=== PATIENT | male | born 1955 | race Caucasian/White ===

== ENCOUNTER 2022-08-17 02:30 | Emergency (ER) | payer MEDICARE, SELFPAY ==
--- NOTE | 2022-08-17 | ECG_ITS ---
Test Reason : FALL Blood Pressure : / mmHG Vent. Rate : 072 BPM Atrial Rate : 072 BPM P-R Int : 176 ms QRS Dur : 080 ms QT Int : 388 ms P-R-T Axes : 048 -18 037 degrees QTc Int : 424 ms Normal sinus rhythm Inferior infarct , age undetermined Anteroseptal infarct , age undetermined Abnormal ECG No previous ECGs available Referred By: Generic ED Physician Electronically Signed By:LEXIS LEVI MD
--- NOTE | ~2022-08-17 | CT_ITS ---
EXAMINATION: NONCONTRAST HEAD CT NONCONTRAST CERVICAL SPINE CT INDICATION INFORMATION: Fall. COMPARISON: CT neck dated 12/07/2021 TECHNIQUE: Separate noncontrast CT examinations of the head and cervical spine were performed. Coronal and sagittal images were created for each examination at the technologist workstation. This CT examination was performed using dose optimization techniques as appropriate, variously including the following: *Automated exposure control *Adjustment of mA and/or kV according to patient size (this includes techniques or standardized protocols for targeted exams where dose is matched to indication/reason for exam; i.e. extremities or head) *Use of iterative reconstruction technique DLP: 1564 mGy-cm FINDINGS: Head: There is no evidence of acute intracranial hemorrhage or territorial infarction. No abnormal mass effect or midline shift is seen. Vila to white matter differentiation is well preserved. No extra-axial fluid collections are identified. No hydrocephalus. Proportional prominence of the ventricles and sulcal spaces is consistent with mild volume loss. There is no abnormal attenuation within the brain parenchyma. No acute osseous or soft tissue abnormality. The mastoid air cells and visualized portions of the paranasal sinuses are well aerated. Cervical spine: There is anatomic alignment of the vertebral bodies and posterior elements. The atlantoaxial and atlantooccipital articulations are intact. Vertebral body heights and intervertebral disc spaces are maintained. No evidence of acute fracture. Chronic mildly displaced nonunited fracture of the T C7 spinous process i.e. sloan inspector clip on sunglasses's fracture. No prevertebral soft tissue swelling. Visualized portions of the lung apices are unremarkable. The thyroid gland is unremarkable. CT/CT cervical spine wo IV con IMPRESSION: * No acute intracranial bleed or territorial infarction. * No acute fractures of the calvarium or cervical spine.
--- NOTE | ~2022-08-17 | XR_ITS ---
EXAMINATION: XR PELVIS CLINICAL INFORMATION: Fall COMPARISON: None available. TECHNIQUE: AP view of the pelvis. FINDINGS: Cannulated screws traverse an acute right femoral neck fracture. No new or unexpected fractures. Pelvic ring intact. Sacroiliac and hip joints are normal. Pubic symphysis is normal. Large stool ball in the rectum XR/XR pelvis 1-2V IMPRESSION: * No new fractures. * Cannulated screws traverse an acute right femoral neck fracture. No evidence of hardware failure or complication. This result was discussed with Dr Carlin at 08/17/2022 6:06 AM and it was ascertained that the content and urgency of the report was understood at the time of direct communication.
--- NOTE | ~2022-08-17 | CT_ITS ---
EXAMINATION: NONCONTRAST HEAD CT NONCONTRAST CERVICAL SPINE CT INDICATION INFORMATION: Fall. COMPARISON: CT neck dated 12/07/2021 TECHNIQUE: Separate noncontrast CT examinations of the head and cervical spine were performed. Coronal and sagittal images were created for each examination at the technologist workstation. This CT examination was performed using dose optimization techniques as appropriate, variously including the following: *Automated exposure control *Adjustment of mA and/or kV according to patient size (this includes techniques or standardized protocols for targeted exams where dose is matched to indication/reason for exam; i.e. extremities or head) *Use of iterative reconstruction technique DLP: 1564 mGy-cm FINDINGS: Head: There is no evidence of acute intracranial hemorrhage or territorial infarction. No abnormal mass effect or midline shift is seen. Vila to white matter differentiation is well preserved. No extra-axial fluid collections are identified. No hydrocephalus. Proportional prominence of the ventricles and sulcal spaces is consistent with mild volume loss. There is no abnormal attenuation within the brain parenchyma. No acute osseous or soft tissue abnormality. The mastoid air cells and visualized portions of the paranasal sinuses are well aerated. Cervical spine: There is anatomic alignment of the vertebral bodies and posterior elements. The atlantoaxial and atlantooccipital articulations are intact. Vertebral body heights and intervertebral disc spaces are maintained. No evidence of acute fracture. Chronic mildly displaced nonunited fracture of the T C7 spinous process i.e. sloan line server's fracture. No prevertebral soft tissue swelling. Visualized portions of the lung apices are unremarkable. The thyroid gland is unremarkable. CT/CT head/brain wo IV con IMPRESSION: * No acute intracranial bleed or territorial infarction. * No acute fractures of the calvarium or cervical spine.
[2022-08-17 02:49] VITALS: BP 116/62; BP 119/69; PULSE 72; RESP 14; TEMP 36.4; O2SAT 92; O2SAT 94; BMI 23.3
[2022-08-17 03:07] LABS: MANUAL DIFF FLAG NO
[2022-08-17 03:08] LABS: Basophils Absolute Auto 0.1 X10*3/uL (0.0-0.2); Basophils Percent Auto 0.8 % (0-2); Eosinophils Absolute Auto 0.2 X10*3/uL (0.0-0.4); Eosinophils Percent Auto 1.3 % (0-4); Hematocrit 38.1 % (42.0-52.0); Hemoglobin 12.2 g/dl (14.0-18.0); Imm Gran Abs Auto 0.05 X10*3/uL (0.00-0.03); Imm Gran Pct Auto 0.4 % (0.0-0.4); Lymphocytes Absolute Auto 1.6 X10*3/uL (1.2-4.9); Lymphocytes Percent Auto 11.6 % (20-40); Mean Corpuscular Volume 90.5 fL (80.0-98.0); Mean Platelet Volume 8.9 fL (9.4-12.4); Monocytes Absolute Auto 1.2 X10*3/uL (0.1-1.2); Monocytes Percent Auto 8.9 % (2-11); Neutrophils Absolute Auto 10.5 x10*3/uL (2.0-8.3); Platelet Count 281 X10*3/uL (160-400); Red Blood Count 4.21 X10*6/uL (4.60-5.80); Red Cell Distribution Width 13.4 % (11.0-16.0); White Blood Count 13.6 X10*3/uL (4.8-10.8)
[2022-08-17 03:15] LABS: Glucose, Whole Blood 207 mg/dL (60-115)
--- NOTE | 2022-08-17 03:29 | ED.FALL ---
HPI - Fall General Chief Complaint: Fall Stated Complaint: back pain Time Seen by Provider: 08/17/22 02:59 Source: patient Mode of arrival: EMS Limitations: no limitations History of Present Illness HPI Narrative: Patient rehab for right femur fracture from previous fall staff today found him next to the bed on the ground at 01:30 according to patient patient was trying to get to the call miramontes and fell OOB. Unknown LOC/head strike patient complaining of neck pain and right leg pain no deformity noticed no vomiting patient is sleepy the any chest pain Related Data Allergies Allergy/AdvReac Type Severity Reaction Status Date / Time codeine Allergy Unknown Verified 08/17/22 03:35 Review of Systems Review of Systems: Yes all other systems are reviewed and are negative [facility] Social History Social History Alcohol intake: never Smoked in Last 30 Days: No Use of substances other than those prescribed or required for medical reasons: No Advance Directives: No Advance Directives Information Provided: Yes Physical Exam Vital Signs: Vital Signs: Last Vital Signs Temp 98.2 F 08/17/22 05:45 Pulse 62 08/17/22 05:45 Resp 14 08/17/22 05:45 BP 117/69 08/17/22 05:45 Pulse Ox 96 08/17/22 05:45 O2 Del Method Room Air 08/17/22 05:45 BMI result Body Mass Index 23.3 Appearance: Alert. Oriented X3. No acute distress. Eyes: PERRLA, No Nystagmus HEENT: Pharynx normal. Oral Mucosa moist atraumatic normocephalic Neck: Normal inspection. Neck supple. Cervical collar in place CVS: Normal heart rate and rhythm. Pulses normal. Respiratory: No respiratory distress. Equal air entry bilateral, no wheezing/rales/rhonchi Abdomen: Soft and nontender. Bowel sounds are present, no mass palpable, no CVA tenderness Skin: Skin warm and dry. Normal skin color. Normal skin turgor. Extremities: No lower extremity edema. No calf tenderness Neuro: Oriented X 3. No motor deficit. No sensory deficit.No cerebellar signs , cranial nerves II-XII intact Medical Decision Making Medical Decision Making MDM Narrative: Is status post mechanical fall head CT negative for acute cervical CT scan showed old nonunited fracture of C7 spinous process. Pelvic x-ray negative for acute will discharge patient back to detention Lab Data [facility] Lab Attestation statement: I reviewed the patient's lab results. 08/17/22 03:01 08/17/22 03:01 Labs: Lab Results 08/17/22 08/17/22 08/17/22 Range/Units 03:01 03:01 03:11 WBC 13.6 H (4.8-10.8) X10*3/uL RBC 4.21 L (4.60-5.80) X10*6/uL Hgb 12.2 L (14.0-18.0) g/dl Hct 38.1 L (42.0-52.0) % MCV 90.5 (80.0-98.0) fL MCH 29.0 (27.0-33.0) pg MCHC 32.0 (31.0-36.0) g/dl RDW 13.4 (11.0-16.0) % Plt Count 281 (160-400) X10*3/uL MPV 8.9 L (9.4-12.4) fL Immature Gran % (Auto) 0.4 (0.0-0.4) % Neut % (Auto) 77.0 H (45-73) % Lymph % (Auto) 11.6 L (20-40) % Grainger % (Auto) 8.9 (2-11) % Eos % (Auto) 1.3 (0-4) % Baso % (Auto) 0.8 (0-2) % Lymph # (Auto) 1.6 (1.2-4.9) X10*3/uL Grainger # (Auto) 1.2 (0.1-1.2) X10*3/uL Eos # (Auto) 0.2 (0.0-0.4) X10*3/uL Baso # (Auto) 0.1 (0.0-0.2) X10*3/uL Abs Immat Gran (auto) 0.05 H (0.00-0.03) X10*3/uL Absolute Neuts (auto) 10.5 H (2.0-8.3) x10*3/uL Absolute Nucleated RBC 0.000 (0.0-0.012) X10*3/uL Nucleated RBC % (auto) 0.0 (0.0-0.2) /100WBC Sodium 140 (135-145) mmol/L Potassium 3.9 (3.3-5.1) mmol/L Chloride 106 (96-108) mmol/L Carbon Dioxide 27 (22-29) mmol/L Anion Gap 11 L (12-20) BUN 16 (9-16) mg/dL Creatinine 0.65 (0.5-1.4) mg/dL Estim Creat Clear Calc 99.5 Estimated GFR > 60 POC Glucose 207 H (60-115) mg/dL Fasting Glucose 225 H (60-99) mg/dL Calcium 8.5 (8.4-10.2) mg/dL Total Bilirubin 0.5 (0.0-1.0) mg/dL AST 12 (5-37) U/L ALT 9 (0-40) U/L Alkaline Phosphatase 94 (39-117) U/L Total Protein 5.3 L (6.5-8.0) g/dL Albumin 2.9 L (3.5-5.0) g/dL Discharge Plan Discharge Clinical Impression: Fall Patient Disposition: Xfer SNF Transfer Details: Head CT and C-spine CT negative for any acute pelvis x-ray also negative for any fracture Instructions: Fall Prevention for Older Adults (ED) Additional Instructions: Care as advised Interventions: ED Discharge Assessment Last Done: 08/17/22 06:18
--- NOTE | 2022-08-17 03:30 | PC.NURSE ---
Pt AxOx3 ,reports 10/10 neck pain and right leg pain. Pt reports trying to get to call miram[facility] and falling OOB. Unknown LOC/ head strike. Pt c-collar by EMS. EKG obtained and reviewed by , lab work drawn and sent to lab.
[2022-08-17 03:32] LABS: Alanine Aminotransferase 9 U/L (0-40); Albumin Level 2.9 g/dL (3.5-5.0); Alkaline Phosphatase 94 U/L (39-117); Anion Gap 11 (12-20); Aspartate Amino Transferase 12 U/L (5-37); Bilirubin Total 0.5 mg/dL (0.0-1.0); Blood Urea Nitrogen 16 mg/dL (9-16); Calcium 8.5 mg/dL (8.4-10.2); Carbon Dioxide 27 mmol/L (22-29); Chloride 106 mmol/L (96-108); Creatinine Clr Calc Pharmacy 99.5; Estimated Glomerular Filt Rate > 60; Glucose Fasting 225 mg/dL (60-99); Potassium 3.9 mmol/L (3.3-5.1); Sodium 140 mmol/L (135-145); Total Protein 5.3 g/dL (6.5-8.0)
[2022-08-17 05:45] VITALS: BP 117/69; PULSE 62; RESP 14; TEMP 36.8; O2SAT 96
--- NOTE | 2022-08-17 06:11 | MHC.EDTECH ---
Call out to [facility] @[phone] booked transport to [facility] ETA of 45 mins.
--- NOTE | 2022-08-17 06:17 | PC.NURSE ---
Nurse to nurse report called to Elyse Landers, Pt will be transported via EMS. Pt aware of plan.
== END 2022-08-17 06:30 | disposition skilled nursing facility (03) ==
PROVIDERS: Emergency Provider Internal Medicine; PCP Emergency Medicine
DX: M54.50 Low back pain, unspecified (principal); R10.2 Pelvic and perineal pain; R94.31 Abnormal electrocardiogram [ECG] [EKG]; M54.2 Cervicalgia; R51.9 Headache, unspecified; Z79.899 Other long term (current) drug therapy
CPT/HCPCS: 36415; 70450; 72125; 72170; 80053; 82947; 85025; 93005; 99284

== ENCOUNTER 2022-08-19 06:18 | Emergency (ER) | payer MEDICARE, SELFPAY ==
--- NOTE | ~2022-08-19 | XR_ITS ---
EXAMINATION: XR HIP, RIGHT CLINICAL INFORMATION: Fall. Pain. COMPARISON: Most recent pelvic radiograph dated 08/17/2022. TECHNIQUE: AP view of the pelvis as well as AP and frog-leg lateral views of the right hip. FINDINGS: Redemonstration of orthopedic screws across the right femoral neck. Minimally displaced femoral neck fracture in unchanged anatomic alignment when compared to the prior radiographs. No hardware fracture. No new osseous fracture. No concerning lytic or blastic osseous lesion. Mild bilateral hip joint space narrowing with small marginal osteophytes. Phleboliths within pelvis. Surgical jessica overlying the lateral aspect of the right hip. XR/XR hip RT w PEL1V IMPRESSION: 1. Right femoral neck ORIF without evidence of hardware complication. Minimally displaced femoral neck fracture in unchanged anatomic alignment. 2. Mild bilateral hip osteoarthritis.
--- NOTE | ~2022-08-19 | CT_ITS ---
EXAMINATION: CT HEAD WITHOUT CONTRAST CT CERVICAL SPINE WITHOUT CONTRAST CLINICAL INFORMATION: Fall. Pain. COMPARISON: CT head and cervical spine dated 08/17/2022. TECHNIQUE: Contiguous axial imaging was performed from the skull base to vertex without intravenous administration of contrast. Contiguous axial CT images of the cervical spine were obtained without contrast. Sagittal and coronal reformats were provided and reviewed. This CT examination was performed using dose optimization techniques as appropriate, variously including the following: *Automated exposure control *Adjustment of mA and/or kV according to patient size (this includes techniques or standardized protocols for targeted exams where dose is matched to indication/reason for exam; i.e. extremities or head) *Use of iterative reconstruction technique DLP: 1060 mGy-cm FINDINGS: HEAD: There is no evidence of acute intracranial hemorrhage or territorial infarction. No abnormal mass effect or midline shift is seen. Vila to white matter differentiation is well preserved. No extra-axial fluid collections are identified. The ventricles are normal in size. Mild hypoattenuation of the periventricular white matter consistent with mild chronic microvascular ischemic disease, unchanged. The osseous structures and soft tissues are normal. The mastoid air cells and visualized portions of the paranasal sinuses are well aerated. CERVICAL SPINE: Normal vertebral body alignment. The normal cervical lordosis is maintained. No acute fracture or subluxation. Chronic, nonfused fracture of the C7 spinous process is unchanged. No loss of vertebral body height. Multilevel loss of intervertebral disc height with endplate osteophytes, unchanged. Mild multilevel bilateral facet arthropathy. No lytic or blastic osseous lesion. Unremarkable prevertebral soft tissues. No abnormal soft tissue mass or fluid collection. Thyroid within normal limits. Visualized lung apices are clear. Mild multilevel bilateral neural foraminal stenosis, unchanged. CT/CT cervical spine wo IV con IMPRESSION: HEAD: No acute intracranial hemorrhage or mass effect. Mild chronic microvascular ischemic disease, unchanged. CERVICAL SPINE: No acute fracture or subluxation. Multilevel degenerative disc disease and bilateral facet arthropathy with mild multilevel bilateral neural foraminal stenosis, unchanged.
[2022-08-19 06:21] VITALS: BP 120/75; PULSE 75; O2SAT 93
[2022-08-19 06:28] VITALS: BP 120/75; BP 123/74; PULSE 75; PULSE 76; RESP 16; TEMP 36.8; O2SAT 93; BMI 23.3
--- NOTE | 2022-08-19 06:42 | MHC.EDTECH ---
PT changed over into hospital gown. Personal belongings placed bedside
--- NOTE | 2022-08-19 07:39 | ED.FALL ---
HPI - Fall General Chief Complaint: Fall Stated Complaint: Fall Time Seen by Provider: 08/19/22 07:34 Source: patient and EMS Mode of arrival: EMS Limitations: no limitations History of Present Illness HPI Narrative: 66-year-old male coming from [facility] with complaints of fall. Patient reports he was trying to get out of bed to get into his wheelchair and he lost his balance causing him to fall forward and hit his head on the ground. He denies loss of consciousness. He has no pain. He is unsure if he is on anticoagulation. He is currently a [facility] after having a right hip fracture with repair. Related Data Allergies Allergy/AdvReac Type Severity Reaction Status Date / Time codeine Allergy Unknown Verified 08/17/22 03:35 Review of Systems Review of Systems: Yes all other systems are reviewed and are negative Constitutional: Constitutional: Reports no additional constitutional complaints, Denies body ache(s), Denies chills, Denies fever(s), Denies headache(s) and Denies weakness Eyes: Eyes: Reports no additional eye complaints and Denies change in vision ENT: Reports system reviewed and no additional complaints, except as documented, Denies dizziness, Denies headache(s), Denies nasal congestion, Denies nasal discharge and Denies neck pain Cardiovascular: Cardiovascular: Reports no additional cardiovascular complaints, Denies chest pain, Denies leg edema and Denies dyspnea Respiratory: Respiratory: Reports no additional respiratory complaints, Denies cough and Denies dyspnea Gastrointestinal: Gastrointestinal: Reports no additional gastrointestinal complaints, Denies abdominal pain, Denies diarrhea, Denies nausea and Denies vomiting Genitourinary: Genitourinary: Denies urinary incontinence Musculoskeletal: Musculoskeletal: Reports no additional musculoskeletal complaints, Denies back pain, Reports arthralgias, Reports joint swelling, Denies neck pain, Denies numbness and Denies tingling Integumentary/Breasts: Skin/Breast: Reports system reviewed and no additional complaints, except as docu and Denies rash Neurologic: Reports system reviewed and no additional complaints, except as documented, Denies Abnormal speech present, Denies dizziness, Denies headache(s), Denies numbness, Denies tingling and Denies weakness PMF Past Medical History Attestation statement: The following information was validated with the patient. Source: old records reviewed and nursing notes reviewed Social History Social History Alcohol intake: never Advance Directives: Yes Advance Directives on File: Yes Advance Directives Date on File: 08/17/22 Physical Exam Vital Signs: Vital Signs: Last Vital Signs Temp 98.2 F 08/19/22 06:28 Pulse 76 08/19/22 06:28 Resp 16 08/19/22 06:28 BP 123/74 08/19/22 06:28 Pulse Ox 93 08/19/22 06:28 O2 Del Method Room Air 08/19/22 06:28 BMI result Body Mass Index 23.3 Const: General: cooperative, healthy appearing, comfortable and no acute distress Orientation/consciousness: patient oriented x3 Limitations: no limitations HEENT: Head: Yes normal to inspection, No Stokes's sign and No raccoon eyes Ears: hearing grossly normal bilaterally General nose exam: Normal external nose present Face and sinus: Yes normal facial exam Mouth: Normal oral and palatal mucosa present Throat: Yes posterior oropharynx normal Eyes: General: appearance normal, both eyes and all related structures Pupils: Equal, round and reactive pupils present Neck: Other: No cervical midline tenderness, step-offs deformities Neck: Yes normal visual inspection and Yes full ROM Chest: Chest palpation & inspection: normal inspection of the chest Resp: Effort & Inspection: normal respiratory effort Auscultation: clear to auscultation bilaterally Cardio: Rate: regular rate Rhythm: regular rhythm Peripheral pulses: Peripheral pulses 2+ throughout GI: Inspection: Yes normal to inspection Palpation (GI): Soft to palpation and nontender Auscultation: normal bowel sounds Back/Spine/Pelvis: Thoracic/Lumbar Spine: thoracic and lumbar spine normal to inspection Skin: General skin exam: no rashes or lesions noted Neuro: General: patient oriented x3, no focal motor deficits and normal sensation to monofilament Cranial nerves: Yes Equal, round and reactive pupils present Cognition (Neuro): normal cognition Speech: No Abnormal speech present Gait exam (Neuro): Normal gait present Motor exam (neuro): 5/5 motor strength present throughout Extrem: Other: There is a surgical site with a bandage over the right hip. General: Yes normal to inspection Course Course Course Narrative: X-ray shows no acute fracture. Hardware is stable. CT head and cervical spine are negative. Plan for discharge back to short-term rehab Medical Decision Making Medical Decision Making MDM Narrative: 66 year old male here after a fall during a transfer with head strike but no loss of consciousness. Patient coming from [facility], recent right hip fracture. On arrival no complaints. Patient alert and oriented. Normal neuro exam. Will obtain CT head, CT cervical spine, right hip x-ray Differential Diagnosis Differential Diagnoses: The differential diagnosis associated with the presentation includes Mechanical fall Fracture, contusion Independent Interpretation I performed an independent interpretation of an: Plain X-Ray and CT Scan Interpretation: I had indepedentely eviewed the x-ray and agree with the radiologist's report Radiology Impression Discussion of test interpretation with radiology: I have reviewed the radiologist's reading. Radiologist Impression: [place] [id number] XRay Report Signed Patient: Ishmael Patel MR#: [id number] : 1955 Acct:[id number] Age/Sex: 66 / M ADM Date: 08/19/22 Loc: HO.ED Attending Dr: Ordering Physician: Catarina Santiago NP Date of Service: 08/19/22 Procedure(s): XR hip RT w PEL1V Accession Number(s): [id number] cc: Catarina Santiago NP~ EXAMINATION: XR HIP, RIGHT CLINICAL INFORMATION: Fall. Pain. COMPARISON: Most recent pelvic radiograph dated 08/17/2022. TECHNIQUE: AP view of the pelvis as well as AP and frog-leg lateral views of the right hip. FINDINGS: Redemonstration of orthopedic screws across the right femoral neck. Minimally displaced femoral neck fracture in unchanged anatomic alignment when compared to the prior radiographs. No hardware fracture. No new osseous fracture. No concerning lytic or blastic osseous lesion. Mild bilateral hip joint space narrowing with small marginal osteophytes. Phleboliths within pelvis. Surgical jessica overlying the lateral aspect of the right hip.? XR/XR hip RT w PEL1V IMPRESSION: 1. Right femoral neck ORIF without evidence of hardware complication. Minimally displaced femoral neck fracture in unchanged anatomic alignment. ? 2. Mild bilateral hip osteoarthritis. FINDINGS: HEAD: There is no evidence of acute intracranial hemorrhage or territorial infarction. No abnormal mass effect or midline shift is seen. Vila to white matter differentiation is well preserved. No extra-axial fluid collections are identified. The ventricles are normal in size. Mild hypoattenuation of the periventricular white matter consistent with mild chronic microvascular ischemic disease, unchanged. The osseous structures and soft tissues are normal. The mastoid air cells and visualized portions of the paranasal sinuses are well aerated. CERVICAL SPINE: Normal vertebral body alignment. The normal cervical lordosis is maintained. No acute fracture or subluxation. Chronic, nonfused fracture of the C7 spinous process is unchanged. No loss of vertebral body height. Multilevel loss of intervertebral disc height with endplate osteophytes, unchanged. Mild multilevel bilateral facet arthropathy. No lytic or blastic osseous lesion. Unremarkable prevertebral soft tissues. No abnormal soft tissue mass or fluid collection. Thyroid within normal limits. Visualized lung apices are clear. Mild multilevel bilateral neural foraminal stenosis, unchanged. ? CT/CT head/brain wo IV con IMPRESSION: HEAD: No acute intracranial hemorrhage or mass effect. Mild chronic microvascular ischemic disease, unchanged. ? CERVICAL SPINE: No acute fracture or subluxation. Multilevel degenerative disc disease and bilateral facet arthropathy with mild multilevel bilateral neural foraminal stenosis, unchanged. Independent Historian Clinical information obtained from an independent historian. History obtained from or confirmed by: EMS Discharge Plan Discharge Clinical Impression: Fall Patient Disposition: Xfer SNF Instructions: Fall Prevention for Older Adults (ED), Fall Prevention (ED) Additional Instructions: The x-ray shows hardware is in place in the right hip with no displacement The CT scan of the head and cervical spine show no acute fracture or bleeding Referrals: Physician,None [Primary Care Provider] -
== END 2022-08-19 09:53 | disposition skilled nursing facility (03) ==
PROVIDERS: Emergency Provider Emergency Medicine
DX: R29.6 Repeated falls (principal); S72.001D Fracture of unspecified part of neck of right femur, subsequent encounter for closed fracture with routine healing; W19.XXXD Unspecified fall, subsequent encounter; Z91.81 History of falling; Z98.890 Other specified postprocedural states
CPT/HCPCS: 70450; 72125; 73502; 99282; 99284

== ENCOUNTER 2023-01-03 10:56 | Outpatient (AMB) | payer MEDICARE, SELFPAY ==
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
[2023-01-03 11:16] VITALS: BP 104/62; PULSE 99; O2SAT 100; BMI 22.0
== END 2023-01-03 12:08 | disposition home or self-care (01) ==
PROVIDERS: Visit Provider Psychiatry & Neurology Neurology
DX: R56.9 Unspecified convulsions (principal); F01.518 Vascular dementia, unspecified severity, with other behavioral disturbance; I69.393 Ataxia following cerebral infarction; G93.40 Encephalopathy, unspecified; G47.33 Obstructive sleep apnea (adult) (pediatric)
CPT/HCPCS: 99204

== ENCOUNTER → 2023-01-03 10:56 | Outpatient (BNVA) | payer MEDICARE, SELFPAY | PROVIDERS: Visit Provider Psychiatry & Neurology Neurology | DX: G93.40 Encephalopathy, unspecified (principal); F09 Unspecified mental disorder due to known physiological condition; R56.9 Unspecified convulsions; G47.33 Obstructive sleep apnea (adult) (pediatric); I69.322 Dysarthria following cerebral infarction | CPT/HCPCS: 99202 ==